=== PATIENT | female | born 1990 | race Caucasian/White ===

== ENCOUNTER 2017-05-01 15:21 | Emergency (ER) | payer OTHER ==
[2017-05-01 16:02] VITALS: BP 115/54
--- NOTE | 2017-05-01 16:27 | UC ---
Skin Complaint HPI - HPI Summary HPI Summary: Patient presents to with skin avulsion to the left pinky finger while cutting vegetables. She notes to minimal amount of bleeding, but soaked through 3 paper towels and felt she needed to come to for check up. The area of the skin is only on the distal tip and she denies any temperature changes or decreased sensation. She had feelings of tingling briefly, which dissipated. She denies any health problems, takes no medications and denies allergies. She is not on blood thinners. Tetanus UTD. - History of Current Complaint Chief Complaint: UCLaceration Time Seen by Provider: 05/01/17 16:10 Stated Complaint: FINGER LAC Hx Obtained From: Patient Hx Last Menstrual Period: 03/29/17 ?: No Onset/Duration: Sudden Onset Skin Exposure Onset/Duration: Minutes Ago Timing: Constant Onset Severity: Mild Current Severity: Mild Pain Intensity: 1 Pain Scale Used: 0-10 Numeric Location: Hand (Left) Aggravating: Nothing Alleviating: Nothing Associated Signs & Symptoms: Positive: Negative - Allergy/Home Medications Allergies/Adverse Reactions: Allergies Allergy/AdvReac Type Severity Reaction Status Date / Time No Known Allergies Allergy Verified 05/01/17 16:03 Review of Systems Constitutional: Negative Skin: Other - avulsion to the left distal tip of the 5th finger Respiratory: Negative Cardiovascular: Negative Motor: Negative Neurovascular: Negative Musculoskeletal: Negative Neurological: Negative All Other Systems Reviewed And Are Negative: Yes PMH/Surg Hx/FS Hx/Imm Hx Previously Healthy: Yes - Surgical History Surgical History: Yes Surgery Procedure, Year, and Place: 2012 WISDOM TEETH EXTRACTION,. wrist surgery from trauma. -12/2015 - Family History Known Family History: Positive: None - Social History Occupation: Employed Full-time Lives: With Family Alcohol Use: Rare Substance Use Type: None Smoking Status (MU): Light Every Day Tobacco Smoker Type: Cigarettes Amount Used/How Often: 5-10 cigarrettes daily Have You Smoked in the Last Year: Yes Household Exposure Type: Cigarettes - Immunization History Most Recent Influenza Vaccination: 08/03/15 Most Recent Tetanus Shot: 10/28/15 Most Recent Pneumonia Vaccination: never Physical Exam Triage Information Reviewed: Yes Appearance: Well-Appearing, Well-Nourished Vital Signs: Initial Vital Signs Temp 98.7 F 05/01/17 15:59 Pulse 61 05/01/17 15:59 Resp 16 05/01/17 15:59 BP 115/54 05/01/17 15:59 Pulse Ox 100 05/01/17 15:59 Vital Signs Reviewed: Yes Eye Exam: Normal Eyes: Positive: Conjunctiva Clear Neck exam: Normal Neck: Positive: Supple, No Lymphadenopathy Respiratory Exam: Normal Respiratory: Positive: Chest non-tender, Lungs clear Cardiovascular Exam: Normal Cardiovascular: Positive: RRR Musculoskeletal Exam: Normal Musculoskeletal: Positive: Strength Intact Neurological Exam: Normal Neurological: Positive: Alert Psychological: Positive: Normal Response To Family, Age Appropriate Behavior Skin: Positive: significant lesion(s) - avulsion to the left distal tip of the 5th finger Laceration Repair - Laceration Repair 1 : No Repair Necessary Laceration Size After Repair: Length (cm) - .5, Width (mm) - .1 Modified For Repair: No Cleansing Completed Via Routine Prep: Yes Irrigation With Pressure Irrigation Device: No Course/Dx - Course Course Of Treatment: avulsion to the left distal tip of the 5th finger. applied vasoline gauze and wrapped with finger gauze. Care instructions given to patient and she is OK with discharge. - Differential Diagnoses - Skin Complaint Differential Diagnoses: Other - avulsion, laceration, puncture - Diagnoses Provider Diagnoses: avulsion to skin Discharge - Discharge Plan Condition: Stable Disposition: HOME Patient Education Materials: Skin Avulsion (ED) Referrals: Darrian Olivia MD [Primary Care Provider] - Additional Instructions: Keep the area clean and dry Apply a bandaid beginning tomorrow You may apply extra tape around the gauze to keep it secured.
== END 2017-05-01 16:20 | disposition home or self-care (01) ==
LOC: UCEAST 15:21
DX: S61.217A Laceration without foreign body of left little finger without damage to nail, initial encounter (principal); W26.0XXA Contact with knife, initial encounter; Y93.G1 Activity, food preparation and clean up; Y92.9 Unspecified place or not applicable; F17.210 Nicotine dependence, cigarettes, uncomplicated
CPT/HCPCS: 99211; G0463

== ENCOUNTER 2017-12-01 14:31 | Emergency (ER) | payer BC, OTHER ==
[2017-12-01 14:58] VITALS: BP 111/57
--- NOTE | 2017-12-01 15:42 | UC ---
Abdominal Pain Female HPI - HPI Summary HPI Summary: 2-3 weeks of worsening sinus pain/congestion, past 24 hours have had nausea vomiting and diarrhea that have now resolved---taking po fluids well - History of Current Complaint Chief Complaint: UCGI Stated Complaint: VOMITTING Time Seen by Provider: 12/01/17 15:32 Hx Obtained From: Patient Hx Last Menstrual Period: 11/13/17 ?: No Onset/Duration: Sudden Onset - sinus c/o, Resolved - nausea, vomiting, diarrhea Timing: Constant Severity Initially: Mild Severity Currently: Mild Pain Intensity: 3 Pain Scale Used: 0-10 Numeric Location: Diffuse - abdomen pain that is not resolved, Other - sinus pain continues Radiates: No Aggravating Factor(s): Nothing Alleviating Factor(s): Nothing Associated Signs and Symptoms: Positive: Nausea, Vomiting, Diarrhea, Other: Allergies/Adverse Reactions: Allergies Allergy/AdvReac Type Severity Reaction Status Date / Time No Known Allergies Allergy Verified 12/01/17 14:58 PMH/Surg Hx/FS Hx/Imm Hx Previously Healthy: Yes - Surgical History Surgical History: Yes Surgery Procedure, Year, and Place: 2011 WISDOM TEETH EXTRACTION,. wrist surgery from trauma. -12/2015 - Family History Known Family History: Positive: None - Social History Occupation: Employed Full-time Lives: With Family Alcohol Use: Rare Substance Use Type: None Smoking Status (MU): Light Every Day Tobacco Smoker Type: Cigarettes Amount Used/How Often: 5-10 cigarrettes daily Have You Smoked in the Last Year: Yes Household Exposure Type: Cigarettes - Immunization History Most Recent Influenza Vaccination: 08/03/15 Most Recent Tetanus Shot: 10/28/15 Most Recent Pneumonia Vaccination: never Review of Systems Constitutional: Negative Skin: Negative Eyes: Negative ENT: Sinus Congestion, Sinus Pain/Tenderness Respiratory: Negative Cardiovascular: Negative Gastrointestinal: Abdominal Pain - resolved, Vomiting - resolved, Diarrhea - resolved, Nausea - resolved Genitourinary: Negative Motor: Negative Neurovascular: Negative Musculoskeletal: Negative Neurological: Headache Psychological: Negative Is Patient Immunocompromised?: No All Other Systems Reviewed And Are Negative: Yes Physical Exam Triage Information Reviewed: Yes Appearance: No Pain Distress, Well-Nourished, Ill-Appearing - mild Vital Signs: Initial Vital Signs Temp 99.3 F 12/01/17 14:52 Pulse 89 12/01/17 14:52 Resp 18 12/01/17 14:52 BP 111/57 12/01/17 14:52 Pulse Ox 100 12/01/17 14:52 Vital Signs Reviewed: Yes Eye Exam: Normal Eyes: Positive: Conjunctiva Clear ENT Exam: Normal ENT: Positive: Normal ENT inspection, Hearing grossly normal, Pharynx normal, Nasal congestion, Nasal drainage, TMs normal, Sinus tenderness, Uvula midline. Negative: Tonsillar swelling, Tonsillar exudate, Trismus, Muffled voice, Hoarse voice, Dental tenderness Dental Exam: Normal Neck exam: Normal Neck: Positive: Supple, Nontender, No Lymphadenopathy Respiratory Exam: Normal Respiratory: Positive: Chest non-tender, Lungs clear, Normal breath sounds, No respiratory distress, No accessory muscle use Cardiovascular Exam: Normal Cardiovascular: Positive: RRR, No Murmur, Pulses Normal, Brisk Capillary Refill Abdominal Exam: Normal Abdomen Description: Positive: Nontender, No Organomegaly, Soft. Negative: CVA Tenderness (R), CVA Tenderness (L) Bowel Sounds: Positive: Present Musculoskeletal Exam: Normal Musculoskeletal: Positive: Strength Intact, ROM Intact, No Edema Neurological Exam: Normal Neurological: Positive: Alert, Muscle Tone Normal Psychological Exam: Normal Skin Exam: Normal Abd Pain Female Course/Dx - Course Course Of Treatment: Augmentin, flonase, mucinex d, increase fluids, tylenol, ibuprofen follow with pcp prn - Differential Dx/Diagnosis Provider Diagnoses: Acute nausea and vomiting-resolved, nicotine dependent, acute sinusitis Discharge - Sign-Out/Discharge Documenting (check all that apply): Discharge - Discharge Plan Condition: Stable Disposition: HOME Prescriptions: Amoxicillin/Clavulanate TAB* [Augmentin TAB 875*] 875 mg PO BID #20 tab Fluticasone NASAL SPRAY 50MCG* [Flonase NASAL SPRAY 50MCG*] 2 spray BOTH NARES DAILY #1 btl Patient Education Materials: How to Stop Smoking (ED), Sinusitis (ED), Nasal Rinse (ED), How to Use Nasal [place] (ED) Forms: *Work Release Referrals: [facility] [Outside] - If Needed - Billing Disposition and Condition Condition: STABLE Disposition: HOME
== END 2017-12-01 15:53 | disposition home or self-care (01) ==
LOC: UCEAST 14:31
DX: R11.2 Nausea with vomiting, unspecified (principal); J01.90 Acute sinusitis, unspecified; F17.210 Nicotine dependence, cigarettes, uncomplicated
CPT/HCPCS: 99212; G0463

== ENCOUNTER 2018-02-16 18:23 | Emergency (ER) | payer BC ==
--- NOTE | 2018-02-16 18:35 | UC ---
Respiratory Complaint HPI - HPI Summary HPI Summary: 27 y/o female presents to the urgent care c/o sinus congestion w/ yellowish nasal discharge and a dry cough for the past week. Now she has developed a productive cough w/ mild low grade fever today Sinus pain and Watkins is 5/10. Pt has taking Tylenol to alleviate symptoms. Pt denies SOB, wheezing, abdominal pain, N/V/D. she has been exposed t strep at work. - History of Current Complaint Stated Complaint: COLD COUGH Time Seen by Provider: 02/16/18 18:33 Hx Obtained From: Patient Hx Last Menstrual Period: 11/13/17 Onset/Duration: Gradual Onset, Lasting Weeks - 1 week, Still Present, Worse Since - today Timing: Constant Severity Initially: Mild Severity Currently: Moderate Pain Intensity: 5 Pain Scale Used: 0-10 Numeric Character: Cough: Productive, Sputum Description: - yellowish Aggravating Factors: Recumbent Position Alleviating Factors: OTC Meds Associated Signs And Symptoms: Positive: Dyspnea, Fever, URI, Nasal Congestion, Sinus Discomfort Related History: Seasonal Allergies - Risk Factors Pulmonary Embolism Risk Factors: Negative Cardiac Risk Factors: Negative Pseudomonas Risk Factors: Negative Tuberculosis Risk Factors: Negative - Allergies/Home Medications Allergies/Adverse Reactions: Allergies Allergy/AdvReac Type Severity Reaction Status Date / Time No Known Allergies Allergy Verified 02/16/18 18:50 PMH/Surg Hx/FS Hx/Imm Hx Previously Healthy: Yes - Pt denies PMHX - Surgical History Surgical History: Yes Surgery Procedure, Year, and Place: 2011 WISDOM TEETH EXTRACTION,. wrist surgery from trauma. -12/2015 - Family History Known Family History: Positive: Diabetes - Social History Occupation: Employed Full-time Lives: With Family Alcohol Use: Rare Substance Use Type: None Smoking Status (MU): Light Every Day Tobacco Smoker Type: Cigarettes Amount Used/How Often: 5-10 cigarrettes daily Have You Smoked in the Last Year: Yes Household Exposure Type: Cigarettes - Immunization History Most Recent Influenza Vaccination: 08/03/15 Most Recent Tetanus Shot: 10/28/15 Most Recent Pneumonia Vaccination: never Review of Systems Constitutional: Fever - subjective at home Skin: Negative Eyes: Negative ENT: Sore Throat, Nasal Discharge, Sinus Congestion, Sinus Pain/Tenderness Respiratory: Cough - productive Cardiovascular: Negative Gastrointestinal: Negative Genitourinary: Negative Motor: Negative Neurovascular: Negative Musculoskeletal: Negative Neurological: Headache Psychological: Negative Is Patient Immunocompromised?: No All Other Systems Reviewed And Are Negative: Yes Physical Exam - Summary Physical Exam Summary: Vitals: reviewed General: Well developed, well-nourished female patient with NAD. Head and face: Normocephalic and atraumatic, Positive tenderness over the frontal and maxillary sinuses.. Eyes: PERRLA, EOMI x 2. Normal conjunctiva. No eye discharge. ENT: Ears and TM with normal limits. Nose: edematous and erythematous nasal mucosa with with yellowish discharge and erythematous mucosa. Pharynx with erythema, no exudate. +PND yellowish Neck: Supple, no JVD, no carotid bruits and no lymphadenopathy. Lungs: clear, no rales, no rhonchi, no wheezes. CVS: RRR, S1 and S2 present no murmurs or gallops appreciated. Abdomen: soft nontender with positive bowel sounds. Extremities: no edema noted. Neuro: WNL. Skin: warm and dry Triage Information Reviewed: Yes Respiratory Course/Dx - Course Course Of Treatment: 27 y/o female presents to the urgent care c/o sinus congestion w/ yellowish nasal discharge and a dry cough for the past week. Now she has developed a productive cough w/ mild low grade fever today Sinus pain and Watkins is 5/10. Pt has taking Tylenol to alleviate symptoms. Pt denies SOB, wheezing, abdominal pain, N/V/D, she has been exposed t strep at work. .Hx obtained. Pt w/ a pharyngitis and bacterial sinusitis on examination. Rapid strep ordered:negative. Pt with 1 week of symptoms getting worse. Pt Rx Augmentin PO and flonase nasal spray. Discharge instructions explained to Pt. Advised to Return to the clinic or PCP if symptoms do not improve.Pt understood and agreed with plan of care. - Differential Dx/Diagnosis Differential Diagnosis/HQI/PQRI: Asthma, Bronchitis, Influenza, Laryngitis, Sinusitis, Other - pharyngitis Provider Diagnoses: 1- Acute bacterial sinusitis. 2- pharyngitis Discharge - Sign-Out/Discharge Documenting (check all that apply): Discharge/Admit/Transfer - D/c home - Discharge Plan Condition: Stable Disposition: HOME Prescriptions: Amoxicillin/Clavulanate TAB* [Augmentin TAB 875*] 875 mg PO BID #20 tab Fluticasone NASAL SPRAY 50MCG* [Flonase NASAL SPRAY 50MCG*] 2 spray BOTH NARES DAILY #1 btl Patient Education Materials: Sinusitis (ED) Referrals: Sindy León MD [Primary Care Provider] - 3 Days Additional Instructions: 1- Please increase fluid intake and rest. take full course of antibiotic to avoid resistance 2-Use Flonase as directed to help drain fluid. Also buy saline drops to clear sinuses 3- take Ibuprofen PO q6-8hrs prn to alleviate Headache and sinus pain 4-Return to the clinic or PCP 3 days if symptoms do not improve for further management and treatment - Billing Disposition and Condition Condition: STABLE Disposition: Home
[2018-02-16 18:49] VITALS: BP 116/59
[2018-02-16] MEDS ORDERED: Amoxicillin/Clavulanate TAB* 875 MG PO ONE (19:45)
== END 2018-02-16 19:54 | disposition home or self-care (01) ==
LOC: UCEAST 18:23
DX: J01.90 Acute sinusitis, unspecified (principal); J02.9 Acute pharyngitis, unspecified; F17.210 Nicotine dependence, cigarettes, uncomplicated
CPT/HCPCS: 87651; 99212; A9270-GY; G0463

== ENCOUNTER 2019-08-06 20:00 | Emergency (ER) | payer BC, OTHER ==
[2019-08-06 21:08] LABS: ABS Basophils 0.1 10^3/ul (0-0.2); ABS Eosinophils 0.2 10^3/ul (0-0.6); ABS Lymphocytes 3.1 10^3/ul (1.0-4.8); ABS Monocytes 0.7 10^3/ul (0-0.8); ABS Neutrophils 5.3 10^3/ul (1.5-7.7); Eosinophil % 1.7 %; Hematocrit 42 % (35-47); Hemoglobin 14.5 g/dL (12.0-16.0); Lymphocyte % 33.2 %; Mean Corpuscular HGB Conc 35 g/dL (31-36); Mean Corpuscular Hemoglobin 32 pg (27-31); Mean Corpuscular Volume 91 fL (80-97); Mean Platelet Volume 8.4 fL (7.4-10.4); Nucleated Red Blood Cells % 0.1; Platelet Count 203 10^3/uL (150-450); Red Blood Count 4.59 10^6 /uL (3.70-4.87); Red Cell Distribution Width 12 % (10-15); White Blood Count 9.3 10^3/uL (3.5-10.8)
--- NOTE | 2019-08-06 21:12 | ED ---
Abdominal Pain/Female - HPI Summary HPI Summary: 28 year old female presents to the ED with a chief complaint of lower abdominal pain that began several weeks ago but worsened on 08/02/19. Pain is described as pressure and is mostly on the left side and radiates to the lower back bilaterally. She denies fever, nausea, vomiting, diarrhea, vaginal discharge, difficulty urinating, or dysuria. Patient stopped control on 07/19, and had her last period on 07/23. Patient smokes tobacco and drinks alcohol, but does not do recreational drugs. She has a history of . - History of Current Complaint Chief Complaint: EDAbdPain Stated Complaint: ABD AND BACK PAIN PER PT Time Seen by Provider: 08/06/19 20:52 Hx Obtained From: Patient Hx Last Menstrual Period: 07/23/19 Onset/Duration: Lasting Weeks, Still Present, Worse Since - 08/02 Timing: Constant Severity Initially: Moderate Severity Currently: Moderate Pain Intensity: 4 Pain Scale Used: 0-10 Numeric Location: Suprapubic Radiates: Yes Radiates to: Back - Lower back bilat Character: Other: - Pressure, bloating Associated Signs and Symptoms: Positive: Back Pain. Negative: Vaginal Discharge , Nausea, Vomiting, Diarrhea Allergies/Adverse Reactions: Allergies Allergy/AdvReac Type Severity Reaction Status Date / Time No Known Allergies Allergy Verified 08/06/19 20:06 PMH/Surg Hx/FS Hx/Imm Hx Endocrine/Hematology History: Denies: Hx Diabetes, Hx Thyroid Disease Cardiovascular History: Denies: Hx Hypertension Respiratory History: Denies: Hx Asthma, Hx Chronic Obstructive Pulmonary Disease (COPD) GI History: Denies: Hx Ulcer Musculoskeletal History: Reports: Other Musculoskeletal History Sensory History: Reports: Hx Contacts or Glasses - READING GLASSES Denies: Hx Hearing Aid Opthamlomology History: Reports: Hx Contacts or Glasses - READING GLASSES Psychiatric History: Reports: Hx Anxiety, Hx Depression Denies: Hx Eating Disorder, Hx of Violent Episodes Against Others - Surgical History Surgery Procedure, Year, and Place: 2011 WISDOM TEETH EXTRACTION,. wrist surgery from trauma. -12/2015 Hx Anesthesia Reactions: No Infectious Disease History: No Infectious Disease History: Denies: Hx Clostridium Difficile, Hx Hepatitis, Hx Human Immunodeficiency Virus (HIV), Hx of Known/Suspected MRSA, Hx Shingles, Hx Tuberculosis, History Other Infectious Disease, Traveled Outside the [place] in Last 30 Days - Family History Known Family History: Positive: None, Diabetes - Social History Alcohol Use: Rare Substance Use Type: Reports: None Smoking Status (MU): Light Every Day Tobacco Smoker Type: Cigarettes Amount Used/How Often: 5-10 cigarrettes daily Have You Smoked in the Last Year: Yes Review of Systems - ROS Summary Review of Systems Summary: Home Medications Medication Instructions Recorded Confirmed Type Fluticasone NASAL SPRAY 50MCG* 2 spray BOTH NARES DAILY #1 btl 02/16/18 Rx [Flonase NASAL SPRAY 50MCG*] Negative: Fever Positive: Abdominal Pain. Negative: Vomiting, Diarrhea, Nausea Negative: dysuria, discharge All Other Systems Reviewed And Are Negative: Yes Physical Exam - Summary Physical Exam Summary: General: Well-developed, Well-nourished female. No acute distress. HEENT: Normocephalic, Atraumatic. Eyes: Conjuctiva normal, PERRL. Ears: TMs within normal limits. Nares: (-) discharge, (-) erythema. Oropharynx: Clear, mucous membranes moist, (-) exudates. Neck: Soft, FROM, (-) lymphadenopathy, (-) thyromegaly, (-) JVD. Cardiovascular: Normal sinus rhythm, (-) murmur. Lungs: Clear to auscultation bilaterally (-) wheezes, (-) rales, (-) rhonchi. Abdomen: Soft, non-distended, (-) organomegaly, normal bowel sounds. Mild tenderness of lower abdomen. Back: (-) CVA tenderness Extremities: No edema. Skin: Warm, dry, (-) rash. Neuro: Alert and oriented x3, no focal deficits. Psychiatric: Mood normal, affect normal. Triage Information Reviewed: Yes Vital Signs On Initial Exam: Initial Vitals Temp Pulse Resp BP Pulse Ox 98.4 F 72 16 122/71 98 08/06/19 20:00 08/06/19 20:00 08/06/19 20:00 08/06/19 20:00 08/06/19 20:00 Vital Signs Reviewed: Yes Procedures - Sedation Patient Received Moderate/Deep Sedation with Procedure: No Diagnostics - Vital Signs Vital Signs Temp Pulse Resp BP Pulse Ox 08/06/19 20:00 98.4 F 72 16 122/71 98 - Laboratory Result Diagrams: 08/06/19 21:00 08/06/19 21:00 Lab Statement: Any lab studies that have been ordered have been reviewed, and results considered in the medical decision making process. - CT AP CT CT Interpretation Completed By: Radiologist Summary of CT Findings: Impressions: 1. In the left lower quadrant there is a left adnexal structure with a. fluid/fluid level. This may represent a hemorrhagic cyst. 2. No acute abdominal findings. An ED physician has reviewed this report. Re-Evaluation - Re-Evaluation First Eval Re-Evaluation Time: 00:39 Change: Improved Comment: I have discussed results with the patient and abdominal pain is resolved. Discussed symptoms that warrant immediate return to ED. Abdominal Pain Fem Course/Dx - Course Course Of Treatment: 28 year old female with lower abdominal pain. pain improved with toradol. workup demonstrated ovarian cyst, probably hemorrhagic. advised followup with culinary manager. - Diagnoses Provider Diagnoses: Hemorrhagic ovarian cyst Discharge ED - Sign-Out/Discharge Documenting (check all that apply): Patient Departure - discharge - Discharge Plan Condition: Stable Disposition: HOME Patient Education Materials: Ovarian Cyst (ED) Referrals: Darrian Olivia MD [Primary Care Provider] - Additional Instructions: Follow up with your primary care provider within 3 days. Return to the Emergency Department for new or worsened symptoms. - Billing Disposition and Condition Condition: STABLE Disposition: Home - Attestation Statements Document Initiated by Alexus: Yes Documenting Scribe: Samy Angel Provider For Whom Alexus is Documenting (Include Credential): Marquita Ray MD Scribe Attestation: Samy Pederson, scribed for Marquita Ray MD on 08/07/19 at 0431. Scribe Documentation Reviewed: Yes Provider Attestation: The documentation as recorded by the Samy sterling accurately reflects the service I personally performed and the decisions made by , Marquita Ray MD Status of Scribe Document: Viewed
[2019-08-06 21:20] LABS: INR 0.95 (0.82-1.09)
[2019-08-06 21:25] LABS: ALT 20 U/L (7-52); AST 22 U/L (13-39); Albumin 4.4 g/dL (3.2-5.2); Albumin/Globulin Ratio 1.6 (1-3); Alkaline Phosphatase 57 U/L (34-104); Anion Gap 6 mmol/L (2-11); BUN/Creatinine Ratio 12.5 (8-20); Blood Urea Nitrogen 8 mg/dL (6-24); C Reactive Protein 2.82 mg/L (<8.01); CO2 Carbon Dioxide 29 mmol/L (22-32); Calcium 9.9 mg/dL (8.6-10.3); Chloride 103 mmol/L (101-111); EGFR African American 132.7 (>60); EGFR Non-African American 109.7 (>60); Globulin 2.7 g/dL (2-4); Glucose 92 mg/dL (70-100); Potassium 3.5 mmol/L (3.5-5.0); Sodium 138 mmol/L (135-145); Total Protein 7.1 g/dL (6.4-8.9)
[2019-08-06 21:31] LABS: HCG Pregnancy < 0.60 mIU/mL
[2019-08-06] MEDS ORDERED: Ondansetron INJ* 2 MG/ML VIAL IV ONE (21:59)
[2019-08-06] MEDS ORDERED: Ketorolac INJ* 30 MG/ML 1 ML VIAL IV PUSH ONE (21:59)
[2019-08-06] MEDS ORDERED: NS 0.9% 1000 ML** 1,000 ML IV ONE (21:59)
[2019-08-06 22:43] LABS: Urine Appearance Clear; Urine Bilirubin Negative (Negative); Urine Blood Negative (Negative); Urine Color Yellow; Urine Glucose Negative (Negative); Urine Ketones Negative (Negative); Urine Nitrite Negative (Negative); Urine Protein Negative (Negative); Urine Urobilinogen Negative (Negative)
[2019-08-06 22:47] LABS: Urine Bacteria Absent (Absent); Urine Red Blood Cell Trace(0-2/hpf) (Absent); Urine Squamous Epithelial Cell Present (Absent); Urine White Blood Cell Trace(0-5/hpf) (Absent)
[2019-08-06] MEDS ORDERED: Iohexol 300* (CONTRAST) 10 ML SDV IV ONE (23:25)
[2019-08-07 01:06] VITALS: BP 112/56
== END 2019-08-07 01:05 | disposition home or self-care (01) ==
LOC: ED 20:00
DX: N83.202 Unspecified ovarian cyst, left side (principal); F41.9 Anxiety disorder, unspecified; F32.9 Major depressive disorder, single episode, unspecified; F17.210 Nicotine dependence, cigarettes, uncomplicated
CPT/HCPCS: 36415; 74177; 80053; 81003; 81015; 83605; 83690; 84702; 85025; 85610; 86140; 87086; 96361; 96374; 96375; 99283; J1885; J2405; Q9967

== ENCOUNTER 2019-10-26 13:19 | Emergency (ER) | payer OTHER ==
[2019-10-26 13:26] VITALS: BP 133/84
--- NOTE | 2019-10-26 15:30 | ED ---
Lower Extremity - HPI Summary HPI Summary: Pt. is a 28 y.o female who presents to the ER for a right foot and ankle injury that occurred 3 days ago. Pt. states she struck her right ankle off of a bar stool when she kicked it. Associated pain and bruising. Sxs are mild in severity. No other injuries sustained. Walking makes sxs worse. Rest improves sxs. - History of Current Complaint Chief Complaint: EDExtremityLower Stated Complaint: RT FOOT INJ PER PT Time Seen by Provider: 10/26/19 15:28 Hx Obtained From: Patient Hx Last Menstrual Period: 07/23/19 Pain Intensity: 8 - Allergies/Home Medications Allergies/Adverse Reactions: Allergies Allergy/AdvReac Type Severity Reaction Status Date / Time No Known Allergies Allergy Verified 10/26/19 13:26 PMH/Surg Hx/FS Hx/Imm Hx Previously Healthy: Yes Endocrine/Hematology History: Denies: Hx Diabetes, Hx Thyroid Disease Cardiovascular History: Denies: Hx Hypertension Respiratory History: Denies: Hx Asthma, Hx Chronic Obstructive Pulmonary Disease (COPD) GI History: Denies: Hx Ulcer Musculoskeletal History: Reports: Other Musculoskeletal History Sensory History: Reports: Hx Contacts or Glasses - READING GLASSES Denies: Hx Hearing Aid Opthamlomology History: Reports: Hx Contacts or Glasses - READING GLASSES Psychiatric History: Reports: Hx Anxiety, Hx Depression Denies: Hx Eating Disorder, Hx of Violent Episodes Against Others - Surgical History Surgery Procedure, Year, and Place: 2011 WISDOM TEETH EXTRACTION,. wrist surgery from trauma. -12/2015 Hx Anesthesia Reactions: No Infectious Disease History: No Infectious Disease History: Denies: Hx Clostridium Difficile, Hx Hepatitis, Hx Human Immunodeficiency Virus (HIV), Hx of Known/Suspected MRSA, Hx Shingles, Hx Tuberculosis, History Other Infectious Disease, Traveled Outside the [place] in Last 30 Days - Family History Known Family History: Positive: None, Diabetes, Non-Contributory - Social History Occupation: Unemployed Lives: With Family Alcohol Use: Rare Substance Use Type: Reports: None Smoking Status (MU): Light Every Day Tobacco Smoker Type: Cigarettes Amount Used/How Often: 5-10 cigarrettes daily Have You Smoked in the Last Year: Yes Review of Systems - ROS Summary Review of Systems Summary: Fluticasone NASAL SPRAY 50MCG* [Flonase NASAL SPRAY 50MCG*] 2 spray BOTH NARES DAILY #1 btl 06/09/18 [Rx Confirmed 08/07/19] Norgestrel-Ethinyl Estradiol [Lxt-Silptewc-89 Tablet] 1 each PO DAILY 08/07/19 [ History Confirmed 08/07/19] Positive: Other - right ankle and foot pain. Positive: Bruising Neurological/Mental Status: Negative Negative: Weakness, Paresthesia, Numbness All Other Systems Reviewed And Are Negative: Yes Physical Exam Triage Information Reviewed: Yes Vital Signs On Initial Exam: Initial Vitals Temp Pulse Resp BP Pulse Ox 97.7 F 93 19 133/84 97 10/26/19 13:23 10/26/19 13:23 10/26/19 13:23 10/26/19 13:23 10/26/19 13:23 Vital Signs Reviewed: Yes Appearance: Positive: Well-Appearing - Pt. sitting in recliner in NAD. Skin: Positive: Warm, Dry Head/Face: Positive: Normal Head/Face Inspection Eyes: Positive: Normal, EOMI Neck: Positive: Supple Musculoskeletal: Positive: Other - Ecchymosis to distal right tib/fib with diffuse pain. No break in skin. Good pedal pulse. No proximal knee pain. Neurological: Positive: Normal, CN Intact II-III Psychiatric: Positive: Affect/Mood Appropriate Procedures - Sedation Patient Received Moderate/Deep Sedation with Procedure: No Diagnostics - Vital Signs Vital Signs Temp Pulse Resp BP Pulse Ox 10/26/19 13:23 97.7 F 93 19 133/84 97 - Laboratory Lab Statement: Any lab studies that have been ordered have been reviewed, and results considered in the medical decision making process. Lower Extremity Course/Dx - Course Course Of Treatment: Xrays negaitive for acute findings per radiology. Acewrap placed for comfort. To ice and elevate. NSAIDS. Will f.u with pcp if sxs persist. - Diagnoses Differential Diagnosis/HQI/PQRI: Positive: Contusion, Fracture (Closed), Sprain , Strain Provider Diagnoses: Contusion Discharge ED - Sign-Out/Discharge Documenting (check all that apply): Patient Departure - Discharge Plan Condition: Good Disposition: HOME Patient Education Materials: Hematoma (ED) Referrals: Darrian Olivia MD [Primary Care Provider] - Additional Instructions: Follow up with PCP if pain persist Ice and elevate Tylenol or Motrin for pain as directed Activity as tolerated Return to ER if symptoms change or worsen - Billing Disposition and Condition Condition: GOOD Disposition: Home - Attestation Statements Provider Attestation: I was available for consult. This patient was seen by the NURA. The patient was not presented to, seen by, or examined by me. -Cindy
== END 2019-10-26 16:08 | disposition home or self-care (01) ==
LOC: ED 13:19
DX: S90.01XA Contusion of right ankle, initial encounter (principal); W22.8XXA Striking against or struck by other objects, initial encounter; Y92.9 Unspecified place or not applicable; F41.9 Anxiety disorder, unspecified; F32.9 Major depressive disorder, single episode, unspecified; F17.210 Nicotine dependence, cigarettes, uncomplicated
CPT/HCPCS: 99281